=== PATIENT | male | born 1995 | race American Indian/Alaskan Native ===

== ENCOUNTER → 2018-08-07 | Outpatient (CLI) | payer OTHER ==
--- NOTE | 2018-08-07 13:21 | REP ---
Bilateral tibia radionuclide bone scan for bilateral garrison pain, three-phase study: After administration of 22 mCi of technetium labeled MDP , scanning is performed during the vascular flow phase anteriorly and posteriorly followed by imaging during the soft tissue uptake phase, followed by imaging during the skeletal phase. On the skeletal phase there is increased uptake in the tibial tubercles bilaterally. This is not unusual at this patient's age, however, should be correlated with clinical point tenderness. There is no tibial periosteal uptake on the right on the left. The skeletal phase uptake is otherwise unremarkable. There is a normal uptake pattern on the soft tissue and vascular phases of the study. Impression: No unusual uptake. In particular no tibial periosteal uptake is identified. There is uptake in the tibial tuberosities bilaterally. This is not unusual at this patient's age, however, should be correlated with clinical point tenderness. Electronically Signed by Tommy Pelletier MD 08/07/2018 01:13 P
== END ==
LOC: M RAD 10:37
PROVIDERS: ATTEND Physician Assistant Medical
DX: M79.661 Pain in right lower leg (principal); M79.662 Pain in left lower leg
CPT/HCPCS: 78315; A9503